=== PATIENT | male | born 2000 | race American Indian/Alaskan Native ===

== ENCOUNTER 2021-11-05 09:13 | Emergency (ER) | payer OTHER ==
[2021-11-05 09:18] VITALS: BP 107/71
--- NOTE | 2021-11-05 09:21 | Emergency Department Report ---
ED Upper Extremity Inj HPI - General Chief Complaint: Extremity Injury, Upper Stated Complaint: LEFT SHOULDER PAIN Time Seen by Provider: 11/05/21 09:16 Source: patient Mode of arrival: Ambulatory Limitations: No Limitations - History of Present Illness Initial Comments: Patient is a pleasant 21-year-old that comes to the emergency room with shoulder pain. He states that 5 days ago he was lifting things and he felt a pop. He thinks his shoulder came out of place but he thinks that he popped it back in. He comes here today for evaluation. He has full range of motion of the shoulder and elbow. He has had no prior dislocations. He is neurovascularly intact. Peripheral vascular intact. Complaint: Injury to:: left, shoulder -: Sudden, days(s) Other Injuries: none Place: home Improves With: none Worsens With: none Associated Symptoms: denies other symptoms - Related Data Allergies Allergy/AdvReac Type Severity Reaction Status Date / Time No Known Allergies Allergy Unverified 11/05/21 09:19 ED Review of Systems ROS: Stated complaint: LEFT SHOULDER PAIN Other details as noted in HPI Comment: All other systems reviewed and negative ED Past Medical Hx - Past Medical History Previous Medical History?: No - Surgical History Past Surgical History?: No - Family History Family history: no significant - Social History Smoking Status: Never Smoker Substance Use Type: None ED Physical Exam - General Limitations: No Limitations General appearance: alert, in no apparent distress - Head Head exam: Present: atraumatic, normocephalic - Eye Eye exam: Present: normal appearance - ENT ENT exam: Present: mucous membranes moist - Neck Neck exam: Present: normal inspection - Respiratory Respiratory exam: Present: normal lung sounds bilaterally. Absent: respiratory distress - Cardiovascular Cardiovascular Exam: Present: regular rate, normal rhythm. Absent: systolic murmur, diastolic murmur, rubs, gallop - GI/Abdominal GI/Abdominal exam: Present: soft, normal bowel sounds - Rectal Rectal exam: Present: deferred - Extremities Exam Extremities exam: Present: normal inspection - Back Exam Back exam: Present: normal inspection - Neurological Exam Neurological exam: Present: alert, oriented X3 - Psychiatric Psychiatric exam: Present: normal affect, normal mood - Skin Skin exam: Present: warm, dry, intact, normal color. Absent: rash ED Course Vital Signs 11/05/21 09:15 Temperature 98.0 F Pulse Rate 66 Respiratory 18 Rate Blood Pressure 107/71 [Left] O2 Sat by Pulse 100 Oximetry ED Medical Decision Making - Radiology Data Radiology results: report reviewed, image reviewed No acute process - Medical Decision Making Vital Signs 11/05/21 09:15 Temperature 98.0 F Pulse Rate 66 Respiratory 18 Rate Blood Pressure 107/71 [Left] O2 Sat by Pulse 100 Oximetry X-ray noted. I discussed with the patient the concern with soft tissue injury and repetitive injury. On discharge again patient is neurovascular and peripheral vascular intact. He has full range of motion. Patient being discharged home with discharge plan of care including diet, activity, medications and follow-up. He verbalizes understanding of plan of care. - Differential Diagnosis Rule out fracture, AC separation Critical care attestation.: If time is entered above; I have spent that time in minutes in the direct care of this critically ill patient, excluding procedure time. ED Disposition Clinical Impression: Shoulder pain Disposition: 01 HOME / SELF CARE / HOMELESS Is pt being admited?: No Does the pt Need Aspirin: No Condition: Stable Instructions: Shoulder Pain Additional Instructions: ice the shoulder motrin or tylenol for pain if problem persist follow up with ortho referral below Referrals: MARCIE DAN MD [Staff Physician] - 3-5 Days Time of Disposition: 10:11
--- NOTE | 2021-11-05 09:53 | XRay Report ---
LEFT SHOULDER 3 VIEW(S) INDICATION / CLINICAL INFORMATION: SHOULDER PAIN. COMPARISON: None available. FINDINGS: BONES / JOINT(S): No acute fracture or subluxation. No significant arthritis. SOFT TISSUES: No significant abnormality. ADDITIONAL FINDINGS: None. IMPRESSION: 1. No acute findings. Signer Name: Bk Ahn MD Signed: 11/05/2021 9:48 AM Workstation Name: [id number]
== END 2021-11-05 12:31 | disposition home or self-care (01) ==
LOC: ED 09:13
DX: M25.512 Pain in left shoulder (principal); X50.1XXA Overexertion from prolonged static or awkward postures, initial encounter; Y93.89 Activity, other specified; Y92.89 Other specified places as the place of occurrence of the external cause; Y99.8 Other external cause status
CPT/HCPCS: 99283